=== PATIENT | female | born 1960 | race American Indian/Alaskan Native ===

== ENCOUNTER 2020-06-06 05:40 | Emergency (ER) | payer BC ==
[2020-06-06 05:58] VITALS: BP 151/81
[2020-06-06 07:28] LABS: Basophils % (Auto) 0.5 % (0.0-1.8); Eosinophils # (Auto) 0.3 K/mm3 (0.0-0.4); Eosinophils % (Auto) 4.3 % (0.0-4.3); Hematocrit 36.3 % (30.3-42.9); Hemoglobin 12.1 gm/dl (10.1-14.3); Lymphocytes # (Auto) 2.1 K/mm3 (1.2-5.4); Lymphocytes % (Auto) 35.1 % (13.4-35.0); Mean Corpuscular HGB Conc 33 % (30-34); Mean Corpuscular Volume 92 fl (79-97); Monocytes # (Auto) 0.5 K/mm3 (0.0-0.8); Platelet Count 213 K/mm3 (140-440); Red Blood Count 3.93 M/mm3 (3.65-5.03); Red Cell Distribution Width 13.9 % (13.2-15.2)
[2020-06-06 07:48] LABS: Calcium 10.1 mg/dL (8.4-10.2)
[2020-06-06] MEDS ORDERED: METOCLOPRAMIDE 10 MG TAB PO ONE (07:56)
[2020-06-06] MEDS ORDERED: KETOROLAC 30 MG/1 ML INJ IM ONE (07:56)
[2020-06-06] MEDS ORDERED: dexAMETHasone 20 MG/5 ML VIAL IM ONE (07:56)
[2020-06-06] MEDS ORDERED: diphenhydrAMINE 25 MG CAP PO ONE (07:56)
--- NOTE | 2020-06-06 08:00 | Emergency Department Report ---
ED Headache HPI - General Chief Complaint: Headache Stated Complaint: HEADACHE Time Seen by Provider: 06/06/20 07:56 Source: patient Exam Limitations: no limitations - History of Present Illness Initial Comments: 60-year-old female presenting with chief complaint of headache. She states that these have been recurrent over the past several months and this 1 began gradually yesterday, described as diffuse, pounding pain with nausea but no vomiting or fevers. Denies neck stiffness. She states that she has seen her doctor and had CTs and MRIs which have been normal. There is nothing different about this headache today other than it will not go away with at home therapies. No alleviating or exacerbating factors. Pain moderate to severe. Allergies/Adverse Reactions: Allergies lisinopril Allergy (Verified 12/30/19 01:39) Angioedema Home Medications: Ambulatory Orders Butalb/Acetamin/Caff 50-325-40 [Fioricet 50-325-40] 1 tab PO Q6HR PRN #12 tab 06/06/20 ED Review of Systems ROS: Stated complaint: HEADACHE Other details as noted in HPI Comment: All other systems reviewed and negative Neurological: as per HPI ED Past Medical Hx - Past Medical History Hx Hypertension: Yes Additional medical history: bradycardia, gout - Surgical History Past Surgical History?: Yes Additional Surgical History: right rotator - Social History Smoking Status: Never Smoker Substance Use Type: None - Medications Home Medications: Home Medications Medication Instructions Recorded Confirmed Last Taken Type Butalb/Acetamin/Caff 50-325-40 1 tab PO Q6HR PRN #12 tab 06/06/20 Unknown Rx [Fioricet 50-325-40] ED Physical Exam - General Limitations: No Limitations General appearance: alert, in no apparent distress - Head Head exam: Present: atraumatic, normocephalic - Eye Eye exam: Present: normal appearance, PERRL, EOMI - ENT ENT exam: Present: mucous membranes moist - Neck Neck exam: Present: normal inspection - Respiratory Respiratory exam: Present: normal lung sounds bilaterally. Absent: respiratory distress - Cardiovascular Cardiovascular Exam: Present: regular rate, normal rhythm. Absent: systolic murmur, diastolic murmur, rubs, gallop - GI/Abdominal GI/Abdominal exam: Present: soft, normal bowel sounds - Extremities Exam Extremities exam: Present: normal inspection - Back Exam Back exam: Present: normal inspection - Neurological Exam Neurological exam: Present: alert, oriented X3, CN II-XII intact, normal gait, reflexes normal. Absent: motor sensory deficit - Psychiatric Psychiatric exam: Present: normal affect, normal mood - Skin Skin exam: Present: warm, dry, intact, normal color. Absent: rash ED Course Vital Signs 06/06/20 05:43 Temperature 97.6 F Pulse Rate 62 Respiratory 17 Rate Blood Pressure 151/81 O2 Sat by Pulse 95 Oximetry ED Medical Decision Making - Lab Data Result diagrams: 06/06/20 06:48 06/06/20 06:48 - Medical Decision Making Patient presenting with headache, consistent with headaches that she has been experiencing recently. No known etiology, has had negative CTs and MRIs. Nothing different about today's headache. Neurologic exam is normal. We will give Toradol Decadron Reglan and Benadryl and then reassess. 0843 labs obtained in triage are at baseline, headache somewhat improved, recommend outpatient neurology follow-up. No indication for repeat imaging today. - Differential Diagnosis Migraine, tension headache, unlikely mass/bleed Critical care attestation.: If time is entered above; I have spent that time in minutes in the direct care of this critically ill patient, excluding procedure time. ED Disposition Clinical Impression: Headache Qualifiers: Headache type: tension-type Headache chronicity pattern: acute headache Intractability: not intractable Qualified Code(s): G44.209 - Tension-type headache, unspecified, not intractable Disposition: DC-01 TO HOME OR SELFCARE Is pt being admited?: No Condition: Good Instructions: Tension Headache, Adult Prescriptions: Butalb/Acetamin/Caff 50-325-40 [Fioricet 50-325-40] 1 tab PO Q6HR PRN #12 tab PRN Reason: Headache Referrals: PRIMARY CARE, [Referring] - 3-5 Days Time of Disposition: 08:44
[2020-06-06] MEDS ORDERED: BUTALB/ACETAMINOPHEN/CAFFEINE TAB PO ONE (08:43)
== END 2020-06-06 08:58 | disposition home or self-care (01) ==
LOC: ED 05:40
DX: R51.9 Headache, unspecified (principal); I10 Essential (primary) hypertension; Z98.890 Other specified postprocedural states; Z79.899 Other long term (current) drug therapy; Z88.8 Allergy status to other drugs, medicaments and biological substances
CPT/HCPCS: 36415; 80048; 85025; 96372; 99283; J1100; J1885